=== PATIENT | female | born 1960 | race Caucasian/White ===

== ENCOUNTER 2017-07-28 09:58 | Emergency (ER) | payer BC ==
[~2017-07-28] VITALS: Ht 162.5 cm; Wt 68.0 kg
[2017-07-28] MEDS ORDERED: PRINIVIL10 MG PO (12:21)
[2017-07-28] MEDS ORDERED: NAPROSYN500 MG PO (12:21)
== END 2017-07-28 11:38 | disposition left against medical advice (07) ==
LOC: ED 09:58
DX: S63.501A Unspecified sprain of right wrist, initial encounter (principal); I10 Essential (primary) hypertension; F17.200 Nicotine dependence, unspecified, uncomplicated; Z98.51 Tubal ligation status; W19.XXXA Unspecified fall, initial encounter; Y93.89 Activity, other specified; Y92.89 Other specified places as the place of occurrence of the external cause; Y99.9 Unspecified external cause status